=== PATIENT | male | born 1955 | race African-American/Black ===

== ENCOUNTER 2016-08-29 20:14 | Emergency (ER) ==
[2016-08-30] MEDS ORDERED: MOTRIN PO ONE (00:25)
--- NOTE | 2016-08-30 00:26 | PROVIDER DOCUMENTATION ---
HPI-Work Related Injury - General Source: patient - History of Present Illness-Work Injury Location of Pain/Injury: reports: back Pain Radiation: reports: neck Quality of Pain: reports: aching Severity: reports: moderate, severe Onset/Duration: reports: this evening Timing: reports: still present Modifying Factors: improves with: nothing Associated Symptoms: reports: back/neck pain, muscle aches <Whit Kaur - Last Filed: 08/30/16 00:52> <Ray Calderon - Last Filed: 08/30/16 01:39> - General Chief Complaint: Work Related Injury Stated Complaint: @1999 WORK RELATED INJURY Time Seen by Provider: 08/29/16 23:15 Allergies/Adverse Reactions: Patient Allergies Allergy/AdvReac Type Severity Reaction Status Date / Time No Known Allergies Allergy Verified 08/29/16 23:55 Home Medications: Home Medication List Medication Instructions Recorded Confirmed Last Taken Type No Home Medications 08/29/16 08/29/16 Unknown History - History of Present Illness-Work Injury Nature of PresentingProblem: 60 Y/O M presents to ED with Work Injury. Pt states this evening and he hurt his back and neck, he was catching a Pt from falling, fell back hit the back of his neck on the toilet and broke toilet seat. States no LOC. Previously hx of surgical spine surgery. C/o of upper back and neck tenderness. C/o of numbness and tingling in hands. (Whit Kaur) Review of Systems - Adult - REVIEW OF SYSTEMS - ADULT Constitutional: denies: chills, fever Eyes: reports: no symptoms reported Ears, Nose, Mouth & Throat: reports: no symptoms reported Cardiovascular: reports: no symptoms reported Respiratory: reports: no symptoms reported Gastrointestinal: reports: no symptoms reported. denies: diarrhea, nausea, vomiting Genitourinary: reports: no symptoms reported Musculoskeletal: reports: back pain, muscle aches Integumentary: reports: no symptoms reported Neurological: reports: no symptoms reported Psychiatric: reports: no symptoms reported Endocrine: reports: no symptoms reported Hematologic/Lymphatic: reports: no symptoms reported Allergic/Immunologic: reports: no symptoms reported All Other Systems: Reviewed and Negative <Whit Kaur - Last Filed: 08/30/16 00:52> Past History - Adult - PAST MEDICAL HISTORY-ADULT Review of Records: reports: Old Records Reviewed, Nursing Assessment Review, Medications Reviewed, Social history reviewed & non-contributory. - SOCIAL HISTORY Smoking: cigarettes, less than 1 pack/day Alcohol Use Frequency: occasionally Living Situation: family <Whit Kaur - Last Filed: 08/30/16 00:52> Physical Exam-Injury Related - Physical Exam-Injury Related Initial Vital Signs Reviewed: Yes General Appearance: appears well, alert, mild distress Eyes: PERRL/EOMI, pink conjunctivae, fundi clear, no AV nicking Head, Ears, Nose, Mouth & Throat: normocephalic/atraumatic, moist mucous membranes, normal ENT inspection Neck: C-spine tenderness (c5,c6,c7 t1) Respiratory: chest non-tender, lungs clear, normal breath sounds Cardiovascular: normal peripheral pulses, regular rate, rhythm Abdominal Exam: normal bowel sounds, non tender, soft Back Exam: normal inspection, no CVA tenderness Extremity: normal range of motion, non-tender, normal gait Integumentary: normal color, warm/dry, blanching 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 Multilevel spinal and foraminal stenosis, C4-5 ACDF - prelim radiology report) <Ray Calderon - Last Filed: 08/30/16 01:39> - PLAN OF CARE/RESULTS Progress/Plan/Lab Results: Orders Category Date Time Status CERVICAL SPINE W/O CONTRAST [CT] Stat Exams 08/29/16 23:54 Taken [facility] URINE DRUG SCREEN Stat Lab 08/29/16 20:24 Ordered Ibuprofen [Motrin] Med 08/30/16 00:25 Discontinued 800 mg PO NOW ONE Vital Signs - 24 hr 08/29/16 20:17 Temperature 98.9 F Pulse Rate 96 H Respiratory 22 Rate Blood Pressure 148/95 O2 Sat by Pulse 98 Oximetry (Ray Calderon) Departure <Whit Kaur - Last Filed: 08/30/16 00:52> - Departure Time of Disposition Order: 01:39 Certified Medical Emergency: Emergent <Ray Calderon - Last Filed: 08/30/16 01:39> - Departure DIAGNOSIS: Contusion of neck Qualifiers: Encounter type: initial encounter Qualified Code(s): S10.93XA - Contusion of unspecified part of neck, initial encounter Disposition: HOME 01 Condition: Stable Additional Instructions: ED Follow Up Instructions: You have been treated by a care provider in the Emergency Department. These instructions are being provided to you so you can have an understanding of how to care for yourself upon discharge. Upon discharge from the Emergency Department, you are responsible for making arrangements for follow-up care by a physician of your choice. Take all prescribed medications as directed. Return to the Emergency Department immediately for any new or worsening symptoms. You may call the Physician Referral phone number at [phone] to obtain a list of Physicians who are taking new patients. Referrals: Joon Uribe MD [Primary Care Provider] - [facility] [Provider Group] Attestation - Scribe Verification/Attestation Scribe:: Whit Kaur Acting as Scribe for:: Kameron Bonilla Scribe documention review:: This chart was documented by a scribe and accurately reflects the service the provider performed and the decisions made by the provider. - Physician/ RICK Attestation Patient care was provided by Advanced Practice Provider:: Yes Advanced Practice Provider:: Ray Calderon Advanced Practice Provider documentation review:: The Mid-level provider documentation, treatment plan and medical decision making was reviewed by the physician who agrees with all treatment and medical decision making by the P. <Whit Kaur - Last Filed: 08/30/16 00:52> - Physician/ RICK Attestation Patient care was provided by Advanced Practice Provider:: Yes Advanced Practice Provider:: Ray Calderon Advanced Practice Provider documentation review:: The Mid-level provider documentation, treatment plan and medical decision making was reviewed by the physician who agrees with all treatment and medical decision making by the MLP. <Ray Calderon - Last Filed: 08/30/16 01:39> Physician Attestation
[2016-08-30 02:07] VITALS: BP 125/84
--- NOTE | 2016-08-30 07:47 | Diag Imaging Result Document ---
PROCEDURE NAME: CERVICAL SPINE W/O CONTRAST - 08/29/2016 CT OF THE CERVICAL SPINE: COMPARISON: There are no previous studies available for comparison. FINDINGS: There has been anterior fusion of C4 and C5. There is osteophyte formation and disk bulge which may produce some spinal stenosis at the C3-4 level and to a lesser extent at the C5-6, C6-7 and C7-T1 levels. The right-sided foramen at C5-6 is narrowed. There is also right-sided foraminal stenosis and to a lesser extent left-sided foraminal stenosis at the C3-4 level. There is no evidence of fracture or subluxation. IMPRESSION: Degenerative disk disease, foraminal stenosis, and postsurgical changes.
== END 2016-08-30 02:06 | disposition home or self-care (01) ==
LOC: ED 20:14
DX: S10.93XA Contusion of unspecified part of neck, initial encounter (principal); M54.6 Pain in thoracic spine; M54.2 Cervicalgia; R20.0 Anesthesia of skin; R20.2 Paresthesia of skin; M79.1 Myalgia; M50.30 Other cervical disc degeneration, unspecified cervical region; M48.02 Spinal stenosis, cervical region; F17.210 Nicotine dependence, cigarettes, uncomplicated; W18.39XA Other fall on same level, initial encounter
CPT/HCPCS: 72125